=== PATIENT | male | born 1965 | race Caucasian/White ===

== ENCOUNTER 2021-11-02 14:01 | Outpatient (CLI) | payer OTHER, SELFPAY | END 2021-11-02 14:02 | disposition home or self-care (01) | PROVIDERS: PCP Internal Medicine; Visit Provider Family Medicine | DX: M54.16 Radiculopathy, lumbar region (principal); M51.36 Other intervertebral disc degeneration, lumbar region | CPT/HCPCS: 62323; Q9966 ==

== ENCOUNTER 2021-11-29 14:19 | Outpatient (CLI) | payer OTHER, SELFPAY ==
--- NOTE | 2021-11-29 14:30 | MR_ITS ---
[facility] [address] [facility] [address] Phone:?[phone] Fax:?[phone] Referring Physician Information: Viral Taylor M.D. [address] [facility] [address] Phone:?[phone] Fax:?[phone] Patient:?Dominick Hatch D.O.B:?1965 Sex:?Male Phone:?[phone] [facility] MRN:?[id number] Exam Date:?11/29/2021 ? EXAM:?MR LUMBAR SPINE WITHOUT CONTRAST CLINICAL INFORMATION: Lumbar radiculopathy and mid/low back pain. COMPARISON: 03/23/2011.?CONTRAST:?None.?SEDATION:?None. TECHNICAL INFORMATION: Imaging was performed at [facility]. Sagittal and axial T1/ FSE T2, sagittal STIR and coronal T1 images were obtained through the lumbar spine. INTERPRETATION: L5-S1:?Normal disc height, no central stenosis, right facet hypertrophy and patent foramina. L4-5: Annular fissure and bulge/protrusion abut dural sac and impinge bilateral L5 roots with mild central stenosis. No facet arthropathy and mild foraminal narrowing. L3-4: Mild disc degeneration, bulge abuts dural sac and mild right facet hypertrophy. Bilateral foraminal bulge with annular fissures abut L3 ganglia. L1-2 and L2-3: Disc desiccation with right-sided bulge at L2-3 and no spinal stenosis or neural impingement. Unremarkable facet joints. T12-L1: Normal disc height and annular margin. No spinal stenosis or neural impingement. Osseous Structures: Fat suppressed images are negative for acute or subacute fractures. Paraspinous Soft Tissues: No mass lesions. Conus, Cord and Cauda Equina: Normal position conus and no evidence of intradural mass or arachnoiditis. CONCLUSION: Multilevel spondylosis, no acute/subacute fractures or destructive lesions, and significant findings are as follows: 1. Mild central/moderate subarticular stenosis at L4-5 where bulge/protrusion impinge bilateral L5 roots with mild central stenosis. 2. Bulge abuts dural sac at L3-4 and bilateral foraminal annular fissures/bulges abut exiting ganglia. 3. No high-grade spinal stenosis. 4. Comparison to 02/21/2011 shows interval mild decrease in posterior disc protrusion size at L4-5 without change in subarticular L5 impingement. No disc degeneration and right bulge at L2-3, new disc degeneration at L1-2 and no interval change at L3-4 Electronically signed on 11/30/2021 1:22:00 PM by Varghese Downing M.D.
== END 2021-11-29 14:20 | disposition home or self-care (01) ==
LOC: MRI 14:20
PROVIDERS: PCP Internal Medicine; Visit Provider Family Medicine
DX: M54.50 Low back pain, unspecified (principal); M51.26 Other intervertebral disc displacement, lumbar region; M54.16 Radiculopathy, lumbar region; M51.36 Other intervertebral disc degeneration, lumbar region
CPT/HCPCS: 72148

== ENCOUNTER 2021-12-07 14:36 | Outpatient (CLI) | payer OTHER, SELFPAY | END 2021-12-07 14:37 | disposition home or self-care (01) | LOC: INJ CL 14:41 | PROVIDERS: PCP Internal Medicine; Visit Provider Family Medicine | DX: M54.16 Radiculopathy, lumbar region (principal); M51.36 Other intervertebral disc degeneration, lumbar region | CPT/HCPCS: 62323; J0702; Q9966 ==

== ENCOUNTER 2022-01-18 14:15 | Outpatient (CLI) | payer OTHER, SELFPAY ==
--- NOTE | 2022-01-18 14:30 | MR_ITS ---
[facility] [address] [facility] [address] Phone:?[phone] Fax:?[phone] Referring Physician Information: Ronan Lehman M.D. [address] [facility] [address] Phone:?[phone] Fax:?[phone] Patient:Trista Hatch D.O.B:?1965 Sex:?Male Phone:?[phone] [facility] MRN:?[id number] Exam Date:?01/18/2022 ? EXAM: MRI OF THE THORACIC SPINE WITHOUT CONTRAST CLINICAL INFORMATION: 56-year-old man with back pain. TECHNICAL INFORMATION: MRI of the thoracic spine was obtained on 1.5 Elizabeth magnet including sagittal T2, T1, and STIR images. Axial T2 and gradient echo images. INTERPRETATION: There is mild convex to the right curvature of the thoracic spine. Normal alignment of the thoracic spine in the sagittal plane. No marrow edema within the thoracic vertebral bodies. No loss of vertebral body height. Endplate irregularities and Schmorl's nodes at multiple levels. No abnormal T2 signal within the thoracic spinal cord. C7-T1 through T2-3: No cord deformity or central spinal canal stenosis. The foramen are patent and the facet joints are unremarkable. T3-4: No cord deformity or central spinal canal stenosis. Moderate right facet arthropathy. The foramen are patent. T4-5: No cord deformity or central spinal canal stenosis. Mild right facet arthropathy. The foramen are patent. T5-6: Mild degenerative disc disease and Schmorl's node. Disc bulge without cord deformity or central spinal canal stenosis. Mild bilateral facet arthropathy. T6-7 through T8-9: Severe degenerative disc disease at each of these levels. Disc bulge and ventral marginal osteophyte. No cord deformity or central spinal canal stenosis. The foramen are patent. T9-10 through T12-L1: Moderate degenerative disc disease with disc bulge and ventral marginal osteophyte each level. No central spinal canal or foraminal stenosis. CONCLUSION: Mild convex to the right curvature of the thoracic spine. Multilevel thoracic spondylosis and Scheuermann's-type endplate changes. Specific findings include: 1. No cord deformity or central spinal canal stenosis. 2. Multilevel facet arthropathy as detailed above. LPB Electronically signed on 01/19/2022 3:15:00 PM by Shay Aparicio M.D.
== END 2022-01-18 14:16 | disposition home or self-care (01) ==
LOC: MRI 14:15
PROVIDERS: PCP Internal Medicine; Visit Provider Internal Medicine
DX: M54.6 Pain in thoracic spine (principal); M47.894 Other spondylosis, thoracic region
CPT/HCPCS: 72146

== ENCOUNTER 2022-02-22 07:29 | Outpatient (CLI) | payer OTHER, SELFPAY ==
--- NOTE | 2022-02-22 07:15 | MR_ITS ---
[address] [address] Phone:?[phone] Fax:?[phone] Referring Physician Information: Boris Gillespie M.D. [address] [facility] [address] Phone:?[phone] Fax:?[phone] Patient:Trista Hatch D.O.B:?1965 Sex:?Male Phone:?[phone] [facility] MRN:?[id number] Exam Date:?02/22/2022 ? EXAM: MRI EXAMINATION OF THE LEFT HIP CLINICAL INFORMATION: Male, 56 years old, with left hip pain. INDICATION: Evaluate for internal derangement. PRIOR SURGERY: None reported. PLAIN FILMS: None available. COMPARISONS: No prior MRIs available. TECHNICAL INFORMATION: Using a 1.5T MR scanner and a localizing surface coil: coronals: PD, T2 sagittals: PD, T2 oblique axials: PD straight axials: PDFS coronals: T1, STIR of pelvis and hips SEDATION: None CONTRAST: None FINDINGS: Hip joint: Physiologic hip effusion. Moderate generalized thinning of the articular cartilage throughout the left hip joint, most pronounced anterosuperiorly and superolaterally. No intra-articular bodies. Labrum: Intrasubstance degeneration and complex tearing of the anterosuperior through posterosuperiorly labrum (axial PD oblique series 6 images 11-16). This is associated with a 2.5 x 1.0 x 3.2 cm anterosuperior paralabral cyst (axial PDFS series 7 image 9 and coronal PD series 4 image 25). Proximal femur: No femoral occult fracture, stress injury, marrow edema or osteonecrosis. Moderate marginal osteophytosis superimposed upon moderate femoral cam morphology. Acetabulum: Moderate subchondral cystic changes present throughout the periphery of the acetabulum (coronal STIR series 2 image 16 and sagittal T2 series 9 image 18). Version: Decreased cranial acetabular anteversion borders on retroversion. Coverage: Left lateral center edge (CE) angle measures approximately 34? (normal 25?-39?), midline coronal series 4 image 16, corrected for pelvic obliquity. Ligamentum teres: Ligamentum teres is intact and unremarkable. Iliofemoral ligament: The iliofemoral ligament is intact without thickening. Pelvis osseous structures: Sacral ala and sacroiliac joints: No stress/insufficiency fractures or marrow edema/pathology. No demonstrable sacroiliitis. Pubic rami and pubic symphysis: No stress/insufficiency fractures or marrow edema/pathology. Normal alignment without hypertrophy or evidence of ongoing osteitis pubis. Myotendinous structures: Gluteus abductors: No convincing insertional tendinopathy or tear of gluteus minimus or medius. Adductors: No demonstrable tendinopathy or strain/tear. Hamstrings: Mild to moderate common hamstrings tendinopathy, bilaterally, without tear. Flexors: Intact iliopsoas and rectus femoris, without strain/tear. External rotators: Intact, without demonstrable ischiofemoral impingement. Gluteal aponeurotic fascia and IT band: Unremarkable. Bursae: No demonstrable trochanteric, iliopsoas, or iliopectineal bursitis. Intrapelvic contents: Free fluid: No free fluid seen within the pelvis. Pelvic viscera: No discrete intrapelvic mass is identified. Lymph nodes: No lymphadenopathy by MRI size criteria. Neurovascular structures: No discrete cyst, mass or other compression upon the portions visualized of sciatic or femoral nerves. Lumbar spine: The visualized portions of the lower lumbar spine are unremarkable. IMPRESSION: 1. Moderate osteoarthritis of the left hip joint. 2. Intrasubstance degeneration complex tearing of the anterosuperior through posterosuperior labrum with a 2.5 x 1.0 x 3.2 cm anterosuperior paralabral cyst. 3. Mild-moderate bilateral common hamstrings tendinopathy, without tear. 4. Moderate femoral cam morphology with borderline cranial acetabular retroversion, which may predispose to femoroacetabular impingement (ZAK). However, the left hip volume is normal. 5. No fracture or osseous stress reaction. BC Electronically signed on 02/22/2022 1:01:00 PM by Aman Brush M.D.
== END 2022-02-22 07:30 | disposition home or self-care (01) ==
LOC: MRI 07:29
PROVIDERS: PCP Internal Medicine; Visit Provider Orthopaedic Surgery Sports Medicine
DX: M25.552 Pain in left hip (principal); M16.12 Unilateral primary osteoarthritis, left hip; S73.102A Unspecified sprain of left hip, initial encounter
CPT/HCPCS: 73721; 80053; 80061; 82043; 82570; 84153

== ENCOUNTER 2023-01-05 14:23 | Outpatient (RCR) | payer OTHER, SELFPAY | END 2023-05-05 23:59 | disposition home or self-care (01) | PROVIDERS: PCP Internal Medicine; Visit Provider Orthopaedic Surgery | DX: S62.114A Nondisplaced fracture of triquetrum [cuneiform] bone, right wrist, initial encounter for closed fracture (principal); Z51.89 Encounter for other specified aftercare | CPT/HCPCS: 97165; L3906 ==

== ENCOUNTER 2023-03-09 07:50 | Outpatient (CLI) | payer OTHER, SELFPAY | END 2023-03-09 07:51 | disposition home or self-care (01) | LOC: NFLDREF 14:52 | PROVIDERS: PCP Internal Medicine; Referring Provider Internal Medicine; Visit Provider Internal Medicine | DX: E11.9 Type 2 diabetes mellitus without complications (principal); R79.89 Other specified abnormal findings of blood chemistry | CPT/HCPCS: 80053; 80061; 82043; 82570; 84403 ==

== ENCOUNTER 2023-03-24 10:20 | Outpatient (CLI) | payer OTHER, SELFPAY ==
--- NOTE | 2023-03-24 10:30 | MR_ITS ---
[facility] [address] [facility] [address] Phone:?[phone] Fax:?[phone] Referring Physician Information: Ronan Lehman M.D. [address] [facility] [address] Phone:?[phone] Fax:?[phone] Patient:Trista Hatch D.O.B:?1965 Sex:?Male Phone:?[phone] [facility] MRN:?[id number] Exam Date:?03/24/2023 EXAM: MRI of the RIGHT WRIST, without contrast CLINICAL HISTORY: Right wrist pain/injury. Evaluate for fracture of carpal bone. COMPARISONS: Plain radiographs 01/01/2023. TECHNICAL: MR sequences of the right wrist were obtained: coronals: T1, PD FS, T2 3-D sagittals: PD FS axials: PD, PD FS Sedation: None Contrast: None FINDINGS: Joints and osseous structures: No fracture or suspicious bone marrow signal abnormality is seen. There is no subluxation, dislocation, or erosive change. Slight scattered cystlike changes within the triquetrum, capitate, and hamate may reflect enthesopathic changes and/or degenerative changes but are nonspecific. TFCC: The triangular fibrocartilage proper is intact. The proximal and distal laminae of the ulnar attachment are intact. The volar and dorsal radioulnar ligaments are intact. Ligaments: Scapholunate: Intact. The scapholunate interval and angle are normal. The capitolunate angle is normal. Lunotriquetral: No evidence of tear on this nonarthrogram study. No offset of the lunotriquetral interval. Tendons: Flexors: Intact without tendinopathy or tenosynovitis. Extensors: ECU & 6th extensor compartment: Intact without lizett tendinopathy tear or longitudinal splitting. Extensor retinaculum and fibrous subsheath appear intact without demonstrable subsheath injury or nonphysiologic ECU displacement. 1st - 5th extensor compartments: Intact and unremarkable. Neurovascular: Median: Unremarkable carpal tunnel without convincing neuritis or intrinsic/extrinsic masses. Ulnar: Unremarkable Guyon's canal without intrinsic/extrinsic masses. Ganglia: No ganglion is identified. IMPRESSION: 1. Slight scattered cystlike changes within the triquetrum, capitate, and hamate may reflect enthesopathic changes and/or degenerative changes but are nonspecific and of uncertain/doubtful clinical significance. 2. Otherwise, unremarkable MRI of the right wrist without fracture, bone marrow contusion, subluxation/dislocation, ligamentous injury, tendinous pathology, or triangular fibrocartilage tear. RCB Electronically signed on 03/24/2023 2:25:00 PM by Alan Concepcion M.D.
== END 2023-03-24 10:21 | disposition home or self-care (01) ==
LOC: MRI 10:20
PROVIDERS: PCP Internal Medicine; Visit Provider Internal Medicine
DX: M25.531 Pain in right wrist (principal); S62.109A Fracture of unspecified carpal bone, unspecified wrist, initial encounter for closed fracture
CPT/HCPCS: 73221

== ENCOUNTER 2023-09-12 08:20 | Outpatient (CLI) | payer OTHER, SELFPAY ==
--- OUTSIDE RECORDS SUMMARY | 2023-09-16 13:21 | XMS_ITS | Clinical Summary ---
Author Organization [facility] Address [place], [place] [address] Care Team Providers Care Slot Supervisor Name Role Phone Ronan Lehman MD Primary Care Provider Allergies No known active allergies Medications Medication Sig Dispensed Refills Start Date End Date Status CPAP CPAP, heated humidifier, mask, headgear, filters and tubing. For home use. Pressure: Length of Need: 1 unit 0 3 Active aspirin enteric coated 81 mg tablet Take 1 tablet by mouth once daily with a meal. 0 3 Active sertraline (ZOLOFT) 50 mg tabletIndications:Dysthym ic disorder Take 1.5 tablets by mouth once daily. 150 tablet 4 3 Active zolpidem (AMBIEN) 10 mg tablet Take 0.5 tablets by mouth at bedtime if needed. 30 tablet 5 3 Active atorvastatin (LIPITOR) 20 mg tabletIndications:Pure hypercholesterolemia TAKE ONE TABLET BY MOUTH DAILY 90 tablet 0 4 Active metFORMIN (GLUCOPHAGE) 500 mg tabletIndications:Type II or unspecified type diabetes mellitus without mention of complication, uncontrolled TAKE 1 TABLET BY MOUTH TWICE DAILY WITH MEALS 60 tablet 0 5 Active methylPREDNISolone (Medrol, Oneil,) 4 mg tabletIndications:Stenosi s of cervical spine,Radiculopathy, cervical Take by mouth as instructed per packaging. 21 Tablet 1 Active Active Problems Problem Noted Date Diagnosed Date Neuroforaminal stenosis of cervical spine 2012 Displacement of cervical int ervertebral disc without myelopathy 09/18/2012 Diabetes mellitus, type 2 04/26/2012 Overview: Diagnosed 04/2012 Sleep apnea 04/20/2012 Overview: On CPAP L4-5 disk protrusion 05/10/2011 Dysthymic disorder 07/29/2008 Pure hypercholesterolemia 08/01/2006 Immunizations Name Administration Dates Next Due Influenza, IIV3 (Age >=3 years) 01/24/2011 Td (Age >=7 Years) 12/25/1997 Tdap 07/29/2008 Family History Medical History Relation Name Comments Cancer Father from brain cancer at an early age Diabetes Maternal Grandmother Relation Name Status Comments Father Maternal Grandmother Social History Tobacco Use Types Packs/Day Years Used Date Smoking Tobacco: Never Smokeless Tobacco: Never Chew Tobacco Cessation:Counseling Given: Yes Alcohol Use Standard Drinks/Week Comments Yes 0 (1 standard drink = 0.6 oz pur e alcohol) 2 times per week Social Connections Answer Date Recorded Frequency of Communication with Friends and Fami ly Not on file 11/02/2021 Sex and Gender Information Value Date Recorded Sex Assigned at Not on file Gender Identity Not on file Sexual Orientation Not on file Obstetrics History Last Filed Vital Signs Vital Sign Reading Time Taken Comments Blood Pressure 110/72 12/24/2012 11:03 AM CDT Pulse 71 12/24/2012 11:03 AM CDT Temperature 36.5 ??C (97.7 ??F) 12/24/2012 1 1:03 AM CDT Respiratory Rate - - Oxygen Saturation 97% 12/24/2012 11: 03 AM CDT Inhaled Oxygen Concentration - - Weight 101.2 kg (223 lb 3.2 oz) 013 11:03 AM CDT Height 184.8 cm (6' 0.75) 12/24/2012 1 1:03 AM CDT Body Mass Index 29.65 12/24/2012 11:03 AM CDT Plan of Treatment Health Maintenance Due Date Last Done Comments Pneumococcal series for age 6-64 (1 of 2 - PCV) 1970 Depression screening for age 12+ 1976 HIV for age 15-65 06/15/1979 BMI (ht and wt on same day) for age 18+ 1982 Hepatitis C screening for age 18-79 1982 Colonoscopy through age 75 2009 Zoster (shingles) series for age 50+ (1 of 2) 2014 Lipids for age 45-75 04/10/2018 04/10/2013, 04/20/2012, 02/07/2011 Tetanus booster 07/29/2018 07/29/2008, 12/25/1997 COVID-19 vaccine series ( season) 2022 09/28/2021, 02/18/2021 Influenza for age 50-64 12/03/2023 01/24/2011 Tdap Completed 07/29/2008 Procedures Procedure Name Priority Date/Time Associated Diagnosis Comments LDL CHOLESTEROL,DIRECT Timed 04/10/2013 9:10 AM COMMUNITY RESOURCE CONSULTANT from Last 3 Months or Most Recently Relevant to Health Maintenance Results * LDL CHOLESTEROL,DIRECT (04/10/2013 9:10 AM COMMUNITY RESOURCE CONSULTANT) LDL CHOLESTEROL,D IRECT 134 Undefined mg/dL [facility] Comment: ?RISK CATEGORY LDL GOAL ?(mg/dL) ? Vascular disease and/or diabetes (<100) ? Multiple (2+) risk factors ? (<130) ? 0-1 risk factor ?(<160) 04/10/2013 9:10 AM COMMUNITY RESOURCE CONSULTANT 04/10/2013 12:45 PM COMMUNITY RESOURCE CONSULTANT Doctor Unknown CHEMISTRY [facility] INTERNAL ZIP [id number] [address] [facility] [place] [address] from Last 3 Months or Most Recently Relevant to Health Maintenance Care Teams Slot Supervisor Relationship Specialty Start Date End Date Ronan Lehman MD [address] [place] [address] PCP - General 04/06/15
== END 2023-09-12 08:21 | disposition home or self-care (01) ==
LOC: NFLDREF 09-16 13:20
PROVIDERS: PCP Internal Medicine; Referring Provider Internal Medicine; Visit Provider Internal Medicine
DX: Z00.00 Encounter for general adult medical examination without abnormal findings (principal); E11.9 Type 2 diabetes mellitus without complications; Z13.9 Encounter for screening, unspecified; Z12.5 Encounter for screening for malignant neoplasm of prostate; Z13.6 Encounter for screening for cardiovascular disorders
CPT/HCPCS: 80053; 80061; 82043; 82570; G0103

== ENCOUNTER 2024-03-11 18:21 | Outpatient (CLI) | payer OTHER, SELFPAY ==
--- OUTSIDE RECORDS SUMMARY | 2024-03-11 18:23 | XMS_ITS | Clinical Summary ---
Author Organization [facility] Address [place], [place] [address] Care Team Providers Care Lime Sludge Mixer Name Role Phone Ronan Lehman MD Primary Care Provider [phone] Allergies No known active allergies Medications CPAP CPAP, heated humidifier, mask, headgear, filters and tubing. For home use. Pressure: Length of Need: 1 unit 0 04/20/19 13 Active aspirin enteric coated 81 mg tablet Take 1 tablet by mouth once daily with a meal. 0 08/30/19 13 Active sertraline (ZOLOFT) 50 mg tabletIndications:Dysth ymic disorder Take 1.5 tablets by mouth once daily. 150 tablet 4 01/02/20 13 Active zolpidem (AMBIEN) 10 mg tablet Take 0.5 tablets by mouth at bedtime if needed. 30 tablet 5 03/20/20 13 Active atorvastatin (LIPITOR) 20 mg tabletIndications:Pure hypercholesterolemia TAKE ONE TABLET BY MOUTH DAILY 90 tablet 0 03/19/20 14 Active metFORMIN (GLUCOPHAGE) 500 mg tabletIndications:Type II or unspecified type diabetes mellitus without mention of complication, uncontrolled TAKE 1 TABLET BY MOUTH TWICE DAILY WITH MEALS 60 tablet 0 10/11/19 15 Active methylPREDNISolone (Medrol, Oneil,) 4 mg tabletIndications:Steno sis of cervical spine,Radiculopathy, cervical Take by mouth as instructed per packaging. 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 file Not on file Not on file Obstetrics History Last Filed Vital Signs Vital Sign Reading Time Taken Comments Blood Pressure 110/72 12/24/2012 11:03 AM CDT Pulse 71 12/24/2012 11:03 AM CDT Temperature 36.5 C (97.7 F) 12/24/2012 11:03 AM CDT Respiratory Rate - - Oxygen Saturation 97% 12/24/2012 11: 03 AM CDT Inhaled Oxygen Concentration - - Weight 101.2 kg (223 lb 3.2 oz) 013 11:03 AM CDT Height 184.8 cm (6' 0.75) 12/24/2012 1 1:03 AM CDT Body Mass Index 29.65 12/24/2012 11:03 AM CDT Plan of Treatment Health Maintenance Due Date Last Done Comments Depression screening for age 12+ 1976 HIV for age 15-65 06/15/1979 BMI (ht and wt on same day) for age 18+ 1982 Hepatitis C screening for ag e 18-79 1982 Colonoscopy through age 75 2009 Zoster (shingles) series for age 50+ (1 of 2) 2014 Lipids for age 45-75 04/10/2018 04/10/2013, 04/20/2012, 02/07/2011 Tetanus booster 07/29/2018 07/29/2008, 12/25/1997 COVID-19 vaccine series (2023- season) 2023 09/28/2021, 02/18/2021 Influenza for age 50-64 12/03/2023 01/24/2011 Tdap Completed 07/29/2008 Pneumococcal series for age 6-64 Aged Out No longer eligible b ased on patient's age to complete this topic Procedures Procedure Name Priority Date/Time Associated Diagnosis Comments LDL CHOLESTEROL,DIRECT Timed 04/10/2013 9:10 AM BITUMASTIC APPLIER from Last 3 Months or Most Recently Relevant to Health Maintenance Results * LDL CHOLESTEROL,DIRECT (04/10/2013 9:10 AM BITUMASTIC APPLIER) LDL CHOLESTEROL,D IRECT 134 Undefined mg/dL [facility] Comment: RISK CATEGORY LDL GOAL (mg/dL) Vascular disease and/or diabetes (<100) Multiple (2+) risk factors (<130) 0-1 risk factor (<160) 04/10/2013 9:10 AM BITUMASTIC APPLIER 04/10/2013 12:45 PM BITUMASTIC APPLIER us Doctor Unknown CHEMISTRY Final Result [facility] INTERNAL ZIP [id number] [place] [phone] from Last 3 Months or Most Recently Relevant to Health Maintenance Care Teams Lime Sludge Mixer Relationship Specialty Start Date End Date Ronan Lehman MD [address] [place] [id number] PCP - General 04/06/15
--- NOTE | 2024-03-11 18:30 | CRLHL7_ITS ---
For Patients: As a result of the Century Cures Act, medical imaging exams and procedure reports are released immediately into your electronic medical record. You may view this report before your referring provider. If you have questions, please contact your health care provider. INDICATION: Low back pain. Right hip pain. COMPARISON: None. TECHNIQUE: Sagittal T1, T2, and STIR sequences. Axial T1 and T2 weighted sequences. Post gadolinium T1 weighted sequences. FINDINGS: Normal vertebral body alignment. No fractures. No vertebral body loss of height. No spondylolisthesis. No ligamentous injury. No suspicious osseous lesions. Normal conus terminates at L1. No abnormal enhancement. T12-L1 L1-2: No spinal canal neural foraminal narrowing. L2-3: No narrowing of spinal canal. No neural foraminal narrowing. L3-4: Disc degeneration post disc bulge. Mild narrowing of spinal canal. Moderate right and mild left neural foraminal narrowing. Mild facet arthropathy. L4-5: Disc degeneration posterior disc herniation. No narrowing of spinal canal. Mild narrowing of the bilateral foramina. Mild facet arthropathy. L5-S1: Posterior disc bulge. No narrowing of spinal canal. No impingement of the traversing S1 nerve roots. No neural foraminal narrowing. Mild facet arthropathy. Normal visualized SI joints. Normal paraspinal soft tissues. IMPRESSION: 1. Normal alignment. No fractures 2. Lumbar spondylosis. 3. No abnormal enhancement 4. At L3-4, mild narrowing of the spinal canal. Moderate right and mild left neural foraminal narrowing. 5. At L4-5, mild narrowing of the bilateral neural foramina Dictated by Ronny Ni MD @ 03/13/2024 12:39:50 PM (Electronically Signed)
--- NOTE | 2024-03-11 18:45 | CRLHL7_ITS ---
For Patients: As a result of the Cures Act, medical imaging exams and procedure reports are released immediately into your electronic medical record. You may view this report before your referring provider. If you have questions, please contact your health care provider. INDICATION: Possible anal cyst or abscess. TECHNIQUE: Pelvic MRI with T1, T2, and postcontrast images. Intravenous gadolinium administered. 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 No other perineal inflammatory changes. No pelvic inflammatory changes. No adenopathy. No other bony or soft tissue abnormalities identified. Impression : 1. 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 Dictated by Sage Wagner MD @ 03/14/2024 7:47:11 AM (Electronically Signed)
== END 2024-03-11 18:22 | disposition home or self-care (01) ==
LOC: MRI 18:22
PROVIDERS: PCP Internal Medicine; Visit Provider Surgery
DX: K62.89 Other specified diseases of anus and rectum (principal); M54.50 Low back pain, unspecified; M47.896 Other spondylosis, lumbar region; M25.551 Pain in right hip; R20.2 Paresthesia of skin
CPT/HCPCS: 72158; 72197; A9575

== ENCOUNTER 2024-08-27 07:20 | Outpatient (CLI) | payer OTHER, SELFPAY | END 2024-08-27 07:21 | disposition home or self-care (01) | LOC: NFLDREF 09-03 08:10 | PROVIDERS: PCP Internal Medicine; Referring Provider Internal Medicine; Visit Provider Internal Medicine | DX: E11.9 Type 2 diabetes mellitus without complications (principal); E78.5 Hyperlipidemia, unspecified; Z79.84 Long term (current) use of oral hypoglycemic drugs; Z12.5 Encounter for screening for malignant neoplasm of prostate | CPT/HCPCS: 80053; 80061; 82043; 82570; G0103 ==

== ENCOUNTER 2024-09-03 07:08 | Outpatient (CLI) | payer OTHER, SELFPAY ==
--- NOTE | 2024-09-03 07:15 | CRLHL7_ITS ---
For Patients: As a result of the Century Cures Act, medical imaging exams and procedure reports are released immediately into your electronic medical record. You may view this report before your referring provider. If you have questions, please contact your health care provider. EXAM: MRI OF THE LEFT HIP, WITHOUT CONTRAST CLINICAL INDICATION: Hip pain. PRIOR SURGERY: None. COMPARISON PLAIN FILMS: 10 February 2022 COMPARISON CROSS-SECTIONAL IMAGING STUDIES: None. TECHNICAL: Axial, sagittal and coronal PDFS small field of view images of the hip. Coronal and axial T1 and PDFS large field of view images of the entire pelvis. FINDINGS: LEFT HIP: Effusion: No significant joint effusion, synovial hypertrophy or synovitis. Articular Cartilage/Surfaces: Grade 2 to grade 3 thinning and grade 4 fissuring anterior and superior acetabulum and femoral head. Subchondral cysts in the acetabular anterior and superior margin. Tiny femoral head osteophytes. Labrum: Suboptimally assessed. Probable mucoid degeneration and marginal tearing causes indistinct appearance were visualized. Joint Bodies: None seen. Proximal Femoral Morphology: No significant osseous bump. Femoral head-neck offset is within normal limits. Acetabular Morphology: No focal or global retroversion. No significant overcoverage. AVN: Not present. RIGHT HIP: Similar osteoarthritis secondary changes in the acetabulum as on the left. No effusion. OSSEOUS STRUCTURES: No fracture, marrow edema or marrow replacement process. MUSCULOTENDINOUS STRUCTURES AND BURSAE: Tendons and visualized musculotendinous units are intact. No muscle atrophy, or edema to suggest strain changes. No trochanteric or iliopsoas bursitis. INTRAPELVIC CONTENTS: No mass, fluid collection or adenopathy. No inguinal hernia. NEUROVASCULAR STRUCTURES: No abnormality involving the visualized sacral nerve roots or proximal femoral or proximal sciatic nerves. No aneurysmal dilation of the visualized distal aorta or iliac arterial circulation. IMPRESSION: 1. Moderate osteoarthritis of both hips. Likely mucoid degeneration and marginal degenerative tearing left hip labrum. Dictated by Viral Sparrow MD @ 09/03/2024 2:08:31 PM (Electronically Signed)
== END 2024-09-03 07:09 | disposition home or self-care (01) ==
LOC: MRI 07:09
PROVIDERS: PCP Internal Medicine; Visit Provider Internal Medicine
DX: M25.552 Pain in left hip (principal); M16.0 Bilateral primary osteoarthritis of hip; S73.192A Other sprain of left hip, initial encounter
CPT/HCPCS: 73721

== ENCOUNTER 2024-09-17 08:16 | Outpatient (CLI) | payer OTHER, SELFPAY | END 2024-09-17 08:17 | disposition home or self-care (01) | LOC: NFLDREF 09-20 09:31 | PROVIDERS: PCP Internal Medicine; Referring Provider Internal Medicine; Visit Provider Internal Medicine | DX: R79.89 Other specified abnormal findings of blood chemistry (principal); Z13.9 Encounter for screening, unspecified | CPT/HCPCS: 84403 ==

== ENCOUNTER 2024-10-31 12:15 | Outpatient (CLI) | payer OTHER, SELFPAY ==
--- NOTE | 2024-10-31 12:00 | CRLHL7_ITS ---
For Patients: As a result of the Century Cures Act, medical imaging exams and procedure reports are released immediately into your electronic medical record. You may view this report before your referring provider. If you have questions, please contact your health care provider. INDICATION: Right arm pain. COMPARISON: 01/08/2016. 09/14/2012. Technique Sagittal T1, T2, and STIR sequences. Axial T2/gradient sequences. FINDINGS: Normal vertebral body facet alignment. No fractures. No vertebral body loss of height. No spondylolisthesis. No ligamentous injury. Normal marrow signal. No suspicious osseous lesions. Normal cord signal. No intradural mass or lesion. C1-2: No spinal canal narrowing. C2-3: No spinal canal or neural foraminal narrowing. C3-4: Disk degeneration posterior disc bulge. No narrowing of spinal canal. No neural foraminal narrowing. C4-5: Disc degeneration with posterior disc bulge or disc osteophyte complex. No narrowing of spinal canal. Mild narrowing of bilateral foramina. C5-6: Disc generation broad-based disc osteophyte complex. Effacement of the ventral thecal sac and mild narrowing of spinal canal. Moderate severe narrowing of the bilateral foramina. Potential impingement of the C6 nerve roots. C6-7: Disc degeneration and posterior disc bulge. No spinal canal or neural foraminal narrowing. C7-T1: No spinal canal or neural foraminal narrowing. No splenic no neural foraminal narrowing in the visualized upper thoracic spine. IMPRESSION: 1. Normal alignment. No fractures 2. Normal cord signal. 3. Cervical spondylosis 4. At C4-5, mild narrowing of the bilateral neural foramina 5. At C5-6, mild narrowing of the spinal canal. Moderate severe narrowing of the bilateral neural foramina. Potential impingement of the C6 nerve roots. Dictated by Ronny Ni MD @ 11/01/2024 2:18:24 PM (Electronically Signed)
== END 2024-10-31 12:16 | disposition home or self-care (01) ==
LOC: MRI 12:16
PROVIDERS: PCP Internal Medicine; Visit Provider Internal Medicine
DX: M79.601 Pain in right arm (principal); M47.892 Other spondylosis, cervical region; M50.221 Other cervical disc displacement at C4-C5 level; M50.222 Other cervical disc displacement at C5-C6 level; M50.20 Other cervical disc displacement, unspecified cervical region
CPT/HCPCS: 72141

== ENCOUNTER 2025-02-06 07:01 | Outpatient (CLI) | payer OTHER, SELFPAY ==
--- NOTE | 2025-02-06 07:15 | MR_ITS ---
EXAM: MRI of the RIGHT SHOULDER without contrast CLINICAL: Evaluate for rotator cuff tear. History of prior rotator cuff repair surgery. COMPARISONS: None available. TECHNICAL: Multiplanar multisequence MRI of the right shoulder was obtained. SEDATION: None. CONTRAST: None. FINDINGS: Rotator cuff: Supraspinatus/Infraspinatus: Appearance of the distal supraspinatus tendon and anterior distal infraspinatus tendon likely reflects a combination of postoperative changes, tendinosis and sequelae of prior tendon tearing as seen on coronal series 5 images 10-14 with associated surgical anchors in place within the proximal humerus. Suspect ill-defined high-grade partial tearing of the distal supraspinatus tendon on coronal series 5 images 11-12. Tendinosis and mild thin linear partial interstitial tearing of the remaining infraspinatus tendon. No significant fatty atrophy of the muscles. Teres minor: No tendinosis, tear or atrophy. Subscapularis: Moderate tendinosis of the distal tendon without evidence of significant tendon tear. No significant fatty atrophy of the muscle. Bursae: Subacromial-subdeltoid: Minimal bursal edema. Subcoracoid: Moderate bursal fluid. Coracoacromial arch: Acromion morphology: Postop changes of prior acromioplasty. Acromiohumeral space: Within normal limits. Coracohumeral space: Within normal limits. Biceps tendon, long head: Mild to moderate tendinosis of the intra-articular tendon without evidence of significant tendon tear or displacement. Glenohumeral joint: No significant joint effusion. Articular cartilage: No discrete chondral defects identified as visualized. Capsule: No evidence of capsular thickening or injury. Labrum: Suspect postoperative changes of prior superior labral repair surgery. There is attenuation and ill-defined fraying/tearing seen to involve the superior and posterior superior labrum. No perilabral cyst identified. Bones: There are postoperative changes of prior rotator cuff repair surgery with associated surgical anchors in place within the proximal humerus. Suspect postoperative changes of prior superior labral repair surgery with suspected focal postsurgical change involving the superior glenoid. No evidence of bone marrow edema or acute fracture. Acromioclavicular joint: Postoperative changes of prior distal clavicle/AC joint resection surgery. IMPRESSION: 1. Postoperative changes of prior rotator cuff repair surgery. Appearance of the distal supraspinatus and anterior distal infraspinatus tendons likely reflects a combination of postoperative changes, tendinosis and sequelae of prior tendon tearing with suspected ill-defined high-grade partial tearing involving the distal supraspinatus tendon. 2. Moderate tendinosis of the distal subscapularis tendon. 3. Mild to moderate tendinosis of the intra-articular long head biceps tendon. 4. Suspect postoperative changes of prior superior labral repair surgery. Attenuation and ill-defined fraying/tearing involves the superior and posterior superior labrum. 5. Postoperative changes of prior acromioplasty and distal clavicle/AC joint resection surgery. 6. Moderate subcoracoid bursitis. JCZ Electronically signed on 02/06/2025 9:11:00 AM by Marky Briseno D.O.
== END 2025-02-06 07:02 | disposition home or self-care (01) ==
LOC: MRI 07:04
PROVIDERS: PCP Internal Medicine; Visit Provider Orthopaedic Surgery
DX: M75.101 Unspecified rotator cuff tear or rupture of right shoulder, not specified as traumatic (principal); M75.51 Bursitis of right shoulder
CPT/HCPCS: 73221

== ENCOUNTER 2025-03-17 07:54 | Outpatient (CLI) | payer OTHER, SELFPAY | END 2025-03-17 07:55 | disposition home or self-care (01) | LOC: NFLDREF 03-19 12:59 | PROVIDERS: PCP Internal Medicine; Referring Provider Internal Medicine; Visit Provider Internal Medicine | DX: E11.9 Type 2 diabetes mellitus without complications (principal); R79.89 Other specified abnormal findings of blood chemistry | CPT/HCPCS: 84403 ==

== ENCOUNTER 2025-03-19 09:53 | Day surgery (SDC) | payer OTHER, SELFPAY ==
[2025-03-19] VITALS (17 sets, daily range): BP systolic 110–143; BP diastolic 60–85; PULSE 74–94; RESP 12–16; TEMP 37.2–37.5; O2SAT 92–97; BMI 28.2
--- NOTE | 2025-03-19 10:20 | W.PM.H&PU ---
History & Physical Update History & Physical Update H&P Updates: He experienced a perianal abscess that warranted open incision/lancing on 03/17/25. He was placed on antibiotics. He shared this with me. I had a candid discussion with him regarding increased risk of infection for this Right shoulder surgery. As he does not have sepsis, apparent bacteremia, fevers, chills, rigors, or other systemic symptoms, I do think proceeding the right shoulder surgery carries an increased risk relative to baseline, but is acceptable to proceed.
[2025-03-19] MEDS: LACTATED RINGERS 1000 ML 1,000 ML 100 ML IV (10:40)
[2025-03-19] MEDS: SODIUM CHLORIDE 0.9 % (FLUSH) 10 ML SYRINGE IVF (10:46)
--- NOTE | 2025-03-19 11:37 | SUR.PREOP ---
TIME?OUT:?1150 PT/RN/MDA?VERIFICATION?OF?SURGICAL?SITE-RIGHT SHOULDER,?PROCEDURE,?NERVE BLOCK AND?CONSENT OBTAINED?PRIOR?TO?INVASIVE?PROCEDURE.
[2025-03-19] MEDS: MIDAZOLAM HCL 1 MG/ML inj IVP (11:52)
--- NOTE | 2025-03-19 12:25 | P.NB_ITS ---
Nerve Block Nerve Block Time Seen by Provider: 11:55 Date Seen: 03/19/25 Type of block requested by surgeon for post-operative analgesia: supraclavicular Side: right Time out performed: Yes Verification of patient name: Yes Verification of date of : Yes Site marking: site marked Name of person performing procedure: Royer Continuous monitoring Was continuous monitoring of O2 sat, B/P, monitoring specialist, recorded every 15 minutes?: Yes Procedure Checklist: sterile prep, needles and gloves Ultrasound guided. Images saved: Yes Medications given in 5ml increments after negative aspiration: Ropivicaine %: 0.5 mL: 15 Needle gauge: 22 Precedex (mcg): 25 Patient tolerated procedure well: Yes Block Charges Block Charge (with Pro Fee): Brachial Plexus Use of Ultrasound Machine for Block: Yes- US Guidance/pain block
[2025-03-19] MEDS: EPINEPHrine 1 MG in SODIUM CHLORIDE IRRIG SOLUTION 3,000 ML 9003 MG IRRIGATION ×3 (13:30→14:30)
--- NOTE | 2025-03-19 15:18 | PM.ORPRC ---
Procedure Note Date of procedure: 03/19/25 Procedure: PREOPERATIVE DIAGNOSES: 1. Right shoulder rotator cuff re-tear. POSTOPERATIVE DIAGNOSES: 1. Right shoulder rotator cuff re-tear. 2. Right shoulder labral tearing (superior and anterior). 3. Right shoulder long head of biceps partial-thickness tearing (near the origin) NAME OF OPERATION: 1. Right shoulder arthroscopic rotator cuff re-repair. 2. Right shoulder arthroscopic limited glenohumeral debridement. SURGEON: Boris Gillespie MD COILED TUBING OPERATOR: Mynor MILLS. Of note, a skilled records management assistant was critical for this case to aide in patient positioning, suture manipulation, arm positioning, instrument positioning, and closure. ANESTHESIA: General plus preoperative supraclavicular block. EBL: 25ml IMPLANTS: Arthrex 5.5 mm BioComposite corkscrew suture anchor (x2); Arthrex 5.5 mm BioComposite SwiveLock suture anchor (x2); COMPLICATIONS: None evident INDICATIONS: The patient is a pleasant, 59-year-old male who has experienced right shoulder pain that has been increasing in recent time. Physical exam and imaging were consistent with a rotator cuff tear. Given their findings, as well as the weakness and pain, and inadequate response to nonoperative management, recommendation was made for surgery. FINDINGS: Exam under anesthesia revealed stable shoulder with excellent range of motion. The diagnostic arthroscopy revealed relatively healthy articular cartilage in the glenohumeral joint surfaces. The Subscapularis tendon was intact with a robust/healthy attachment. The long head of the biceps tendon was overall intact throughout the visualized intra-articular portion including when the tendon was retracted into the joint. However at the origin, there was some partial-thickness tearing like a type 3 slap tear. The superior rotator cuff tendon was found to be torn full-thickness in a stellate pattern. It had a longitudinal split through the mid supraspinatus directed somewhat medially. There is also another split that directed more posterior medially. Finally, there was somewhat of a flap of the more posterior tissue as it had a more lateral horizontal type of split of the supraspinatus. The tissue quality was good. The bone quality was very good. No loose bodies were identified within the pouch or subscapularis recess. The labrum was torn in the posterosuperior, superior, and anterosuperior regions again with extension into the biceps base through the origin. Final a multiple previous sutures were encountered from what was presumed to be previous repairs including the superior labrum and the rotator cuff supraspinatus tissue. All of the sutures that were encountered were cut with an arthroscopic scissors and removed with a Throckmorton. PROCEDURE: Following a thorough discussion of risks, benefits, and alternatives, consent was obtained and the right shoulder was marked. The patient was brought to the operating room and placed supine on the operating table. Induction of anesthesia was completed after preoperative supraclavicular block was administered in preop holding. Appropriate time out was performed identifying proper patient, site, and procedure. 2 g IV Ancef was administered within 1 hour of incision preoperatively. The right upper extremity was prepped and draped in the appropriate sterile fashion using ChloraPrep prep. This was after the patient was positioned in the beach chair with their head in neutral alignment and all bony prominences well padded. The shoulder was insufflated with 20mL of normal saline via an 18g spinal needle from a posterior approach. An 11 blade skin incision allowed a blunt trochar to be inserted and diagnostic arthroscopy to be performed with the findings as noted above. An anterior portal was established with an outside in technique. This allowed the probe to be inserted and confirm the diagnostic arthroscopic findings. The shaver was then inserted and allowed debridement of the pathologic labrum including the posterosuperior, superior, anterosuperior labral tissue as well as the biceps origin at the type 3 slap tear split, which appeared to involve < 20% of the biceps thickness. After debriding this tissue, the biceps was otherwise felt to be stable and intact and worthy of ongoing watchful waiting. No worthy of tenodesis or tenotomy. Following this, the upper border subscapularis was probed and found to be stable. Thereafter, the subacromial space was entered. Here, a complete bursectomy was performed. Further inspection of the supraspinatus and infraspinatus rotator cuff was performed. This identified the tear as noted above. The margins of the tear were debrided, and the greater tuberosity was debrided with a combination of the apollo cautery, shaver, and bur on reverse setting. After gentle decortication, a speed bridge configuration was planned. 2 medial corkscrew suture anchors were placed and the sutures were passed through the rotator cuff with a fiber link 2 separate passes for the posteromedial anchor. The anterior anchor for tails were passed individually on either side of the longitudinal split essentially like marginal convergence sutures but also allowing the tissue to be return to the greater tuberosity insertion. A small dog ear in the posterior aspect was repaired with FiberLink suture and brought to the anterolateral anchor. The rotator cuff showed excellent reapproximation of the greater tuberosity with good security upon probing. Prior to anchor driver lifter of sanitation truck removal, the eyelet sutures were tugged on for each anchor and found that the anchor had excellent stability within the bone. The shoulder was placed through range of motion and found to be stable. The rotator cuff was re-probed and found to be stable. Instruments were removed. Excess fluid was drained, closure performed with 4-0 Monocryl and Steri-Strips. Dressings were applied. Sling was applied. The patient was awoken from anesthesia and transferred to the PACU in stable condition. A skilled records management assistant was critical for this case to aid in patient positioning, limb positioning, skill to manipulate arthroscopic instruments and camera, suture management, patient safety, and closure. PLAN: 1. Elbow, forearm, wrist and digit range of motion as tolerated. 2. Encouraged ice. 3. Oxycodone for pain as needed. 4. Sling at all times except for ROM and showering. 5. Follow up with PA visit in 1-2 weeks for wound check. Initiate physical therapy following that visit for passive range of motion. Initiate active assisted range of motion at 4-5 weeks. May do pendulums now.
--- NOTE | 2025-03-19 15:29 | P.ANES_ITS ---
Anesthesia Charges Start Date/Time Anesthesia Start Date: 03/19/25 Anesthesia Start Time: 12:57 Stop Date/Time Anesthesia Stop Date: 03/19/25 Anesthesia Stop Time: 15:21 Coding CPT Codes CPT Codes: ANESTH SURGERY OF SHOULDER - 42843 ([id number]) P2 - PATIENT W/MILD SYST DISEASE, QK - COREMAKER SUPERVISOR 2-4 CNCRNT ANES PROC, QX - TOP FRAME MAKER SVC W/ MD MED DIRECTION
--- NOTE | 2025-03-19 15:29 | W.ANESCHARGE ---
Anesthesia Charges Start Date/Time Anesthesia Start Date: 03/19/25 Anesthesia Start Time: 12:57 Stop Date/Time Anesthesia Stop Date: 03/19/25 Anesthesia Stop Time: 15:21 Coding CPT Codes CPT Codes: ANESTH SURGERY OF SHOULDER - 02889 ([id number]) P2 - PATIENT W/MILD SYST DISEASE, QK - EMERGENCY CREW SUPERVISOR 2-4 CNCRNT ANES PROC, QX - MATERIALS RECYCLER SVC W/ MD MED DIRECTION
--- NOTE | 2025-03-19 16:49 | P.ANES_ITS ---
Anesthesia Charges Start Date/Time Anesthesia Start Date: 03/19/25 Anesthesia Start Time: 12:57 Stop Date/Time Anesthesia Stop Date: 03/19/25 Anesthesia Stop Time: 15:21 Coding CPT Codes CPT Codes: ANESTH SURGERY OF SHOULDER - 16479 ([id number]) QK - MEDICAL SURGICAL TECH 2-4 CNCRNT ANES PROC, QX - PAN SHAKER SVC W/ MD MED DIRECTION, P2 - PATIENT W/MILD SYST DISEASE
--- NOTE | 2025-03-19 16:49 | W.ANESCHARGE ---
Anesthesia Charges Start Date/Time Anesthesia Start Date: 03/19/25 Anesthesia Start Time: 12:57 Stop Date/Time Anesthesia Stop Date: 03/19/25 Anesthesia Stop Time: 15:21 Coding CPT Codes CPT Codes: ANESTH SURGERY OF SHOULDER - 10023 ([id number]) QK - SUPERVISOR RECLAMATION 2-4 CNCRNT ANES PROC, QX - ADMINISTRATION SPECIALIST SVC W/ MD MED DIRECTION, P2 - PATIENT W/MILD SYST DISEASE
--- NOTE | 2025-03-19 17:07 | SUR.PHASEII ---
pt doing well. tolerated pop, denies pain. arm in sling. Ambulated without difficulty. d/c instructions reviewed with pt and Gerda HIDALGO. All questions answered. pt and brief writer ambulated to car with pt's friend as ride home.
== END 2025-03-19 17:05 | disposition home or self-care (01) ==
LOC: OR 09:54
PROVIDERS: PCP Internal Medicine; Visit Provider Orthopaedic Surgery Sports Medicine
PROC: (CPT 29805; principal; 2025-03-19 11:45)
DX: M75.101 Unspecified rotator cuff tear or rupture of right shoulder, not specified as traumatic (principal); S43.431A Superior glenoid labrum lesion of right shoulder, initial encounter; S46.111A Strain of muscle, fascia and tendon of long head of biceps, right arm, initial encounter; G89.18 Other acute postprocedural pain; E11.42 Type 2 diabetes mellitus with diabetic polyneuropathy; Z79.84 Long term (current) use of oral hypoglycemic drugs; Z79.85 Long-term (current) use of injectable non-insulin antidiabetic drugs
CPT/HCPCS: 29827; 29822; 01630; 64415; 76942; 82962; C1713; J0169; J0330; J0690; J1100; J2250; J2371; J2405; J2704; J2710; J2795; J3010; J7120; L3670